=== PATIENT | female | born 1975 | race Caucasian/White ===

== ENCOUNTER → 2016-05-23 | Outpatient (CLI) | payer OTHER ==
[~2016-05-23] MED LIST: MULT-506 PO; SERT-234 PO
[2016-05-23 14:26] LABS: URINE APPEARANCE CLOUDY (CLEAR); URINE BILIRUBIN NEG (NEG); URINE EPITHELIAL CELL AUTO >30 /lpf (0-5); URINE NITRITE NEG (NEG); URINE PH 5.5 (4.5-7.5); URINE SPECIFIC GRAVITY 1.007 (1.000-1.030); UROBILINOGEN NEG (NEG)
[2016-05-23 14:36] LABS: MANUAL MICROSCOPIC REQUIRED? NO; REVIEW REQ? NO; URINE COLOR YELLOW
== END | disposition home or self-care (01) ==
LOC: C.LABSPEC 13:45
PROVIDERS: ATTEND Family Medicine
DX: M54.5 Low back pain (principal); R10.30 Lower abdominal pain, unspecified

== ENCOUNTER → 2016-05-23 | Outpatient (CLI) | payer OTHER | END | disposition home or self-care (01) | LOC: C.LAB1850 13:00 | PROVIDERS: ATTEND Family Medicine | DX: M54.5 Low back pain (principal); R10.30 Lower abdominal pain, unspecified ==

== ENCOUNTER → 2016-07-08 | Outpatient (CLI) | payer OTHER ==
--- NOTE | 2016-07-08 16:08 | DIAGNOSTIC IMAGING REPORT ---
ELBOW MIN 3 VIEWS ROUTINE CLINICAL HISTORY: Right elbow pain following recent injury. COMPARISON: Right forearm radiograph May 26, 2014. FINDINGS: Alignment of the right elbow is anatomic. A small bony excrescence projecting off the distal shaft of the right humerus is of no clinical significance. There is no acute fracture or joint effusion. A few tiny ossific densities just distal to the humerus measure up to 2 mm. IMPRESSION: 1. No acute fracture or joint effusion of the right elbow. 2. A few punctate ossific densities projecting over the joint space. These could reflect small loose bodies or osteophytes. Electronically signed by: Bryan Haskins M.D. 07/08/2016 4:07 PM Dictated Date/Time: 07/08/2016 4:04 PM
== END | disposition home or self-care (01) ==
LOC: C.RAD 15:28
PROVIDERS: ATTEND Internal Medicine
DX: M25.521 Pain in right elbow (principal); S59.901A Unspecified injury of right elbow, initial encounter; X58.XXXA Exposure to other specified factors, initial encounter

== ENCOUNTER → 2016-07-11 | Outpatient (CLI) | payer OTHER ==
--- NOTE | 2016-07-11 15:54 | DIAGNOSTIC IMAGING REPORT ---
ULTRASOUND LEFT VENOUS DOPP LOWER EXT UNILAT CLINICAL HISTORY: Left leg pain COMPARISON STUDY: No previous studies for comparison. FINDINGS: Real-time and color flow Doppler imaging were performed. Flow was seen within the femoral, popliteal and calf veins with no intraluminal thrombus demonstrated. The saphenous vein is patent. There is a complex left popliteal cyst measuring 34 x 15 x 19 mm. IMPRESSION: No evidence of left lower extremity DVT. Electronically signed by: Roland Wong M.D. 07/11/2016 3:52 PM Dictated Date/Time: 07/11/2016 3:52 PM
== END | disposition home or self-care (01) ==
LOC: C.ULTR 15:20
PROVIDERS: ATTEND Physician Assistant Medical
DX: M25.562 Pain in left knee (principal); M79.605 Pain in left leg

== ENCOUNTER → 2016-07-19 | Outpatient (CLI) | payer OTHER ==
--- NOTE | 2016-07-19 11:17 | DIAGNOSTIC IMAGING REPORT ---
RIGHT FOOT 3 VIEWS CLINICAL HISTORY: Right foot pain. FINDINGS: 3 views of the right foot are obtained No prior studies are available for comparison at the time of dictation. The skeletal structures are well mineralized. No fracture is seen. The joint spaces are well-maintained. There is a small plantar calcaneal enthesophyte. A small os naviculari is incidentally noted. The overlying soft tissues are within normal limits. IMPRESSION: Unremarkable radiographic assessment of the right foot. Electronically signed by: Woody Lanier M.D. 07/19/2016 11:15 AM Dictated Date/Time: 07/19/2016 11:13 AM
== END | disposition home or self-care (01) ==
LOC: C.RADBC 10:53
PROVIDERS: ATTEND Physician Assistant Medical
DX: M79.671 Pain in right foot (principal)

== ENCOUNTER → 2016-09-22 | Outpatient (CLI) | payer OTHER ==
--- NOTE | 2016-09-22 13:07 | DIAGNOSTIC IMAGING REPORT ---
RIGHT FOOT MIN 3 VIEWS ROUTINE CLINICAL HISTORY: Right foot pain. Trauma. COMPARISON: 07/19/2016 DISCUSSION: No fractures or dislocations are visualized. There is a tiny plantar calcaneal spur. IMPRESSION: No fractures or dislocations identified. Electronically signed by: Roland Wong M.D. 09/22/2016 1:06 PM Dictated Date/Time: 09/22/2016 1:04 PM
== END | disposition home or self-care (01) ==
LOC: C.RADBC 12:46
PROVIDERS: ATTEND Family Medicine
DX: M79.671 Pain in right foot (principal)

== ENCOUNTER 2016-09-23 00:46 | Emergency (ER) | payer OTHER ==
[~2016-09-23] VITALS: Ht 162.6 cm; Wt 90.7 kg
[2016-09-23 00:47] VITALS: TEMP 36.7; Ht 162.6 cm; Wt 90.7 kg
--- NOTE | 2016-09-23 01:18 | EMERGENCY ROOM VISIT NOTE ---
ED Visit Note First contact with patient: 01:12 CHIEF COMPLAINT: Foot pain HISTORY OF PRESENT ILLNESS: This 40-year-old female patient presents to the emergency department ambulatory complaining of pain in the right foot. The patient states that a few weeks ago, she dropped a bed onto her foot and has had pain since then. She states that a few days ago she twisted her foot while walking. She called her primary care provider earlier today and they were unable to make an appointment, but did order an x-ray which was performed today. She states she has an appointment scheduled with orthopedics in 2 weeks. She reports pain over the top of the foot which is worse with weightbearing. The patient rates the pain as sharp and 8/10. The patient has not taking any medication at home for relief of the pain. The patient is able to walk. No numbness or weakness. No ankle pain. There are no lacerations of the foot. The patient is able to move all of their toes and their ankle without pain. No previous fracture to this foot. REVIEW OF SYSTEMS: GENERAL: A 6 system review of systems was completed with positives and pertinent negatives in the HPI. ALLERGIES: Azithromycin, penicillins MEDICATIONS: Zoloft PMH: No significant past medical history. SOCIAL HISTORY: The patient lives locally with family. She is a smoker. PHYSICAL EXAM: Vital Signs: Reviewed Nurse's notes, vital signs stable. GENERAL : This is a 40-year-old female, in no acute distress, but appears in pain, well- developed, well-nourished. MUSCULOSKELETAL: There is no visual deformity of the right foot. There is no erythema or ecchymosis. There is no warmth. There is tenderness and swelling over the dorsal aspect of the right foot. There is no tenderness over the lateral or medial malleolus. No tenderness of the tib/fib. The range of motion of the ankle and toes are full. There is no tenderness over the plantar fascia. The skin is intact and there are no lacerations or puncture wounds. Dorsalis pedis pulse 2+. Capillary refill less than 2 seconds. RADIOGRAPHIC FINDINGS: RIGHT FOOT MIN 3 VIEWS ROUTINE (performed as outpatient 09/22/16) CLINICAL HISTORY: Right foot pain. Trauma. COMPARISON: 07/19/2016 DISCUSSION: No fractures or dislocations are visualized. There is a tiny plantar calcaneal spur. IMPRESSION: No fractures or dislocations identified. EMERGENCY DEPARTMENT COURSE: I examined the patient. Records were reviewed. The patient had an x-ray performed as an outpatient today. She was given the results of this x-ray. She is placed in a postoperative shoe. She has follow- up scheduled with orthopedics in 2 weeks. Conservative measures were discussed. She verbalized understanding and was discharged home in good condition. Medication reconciliation: I attest that I have personally reviewed the patient 's current medication list. Blood pressure screening: Patient was found to have an elevated blood pressure and was referred to their primary care provider for recheck and further treatment. DIAGNOSIS: Foot pain Current/Historical Medications Scheduled Sertraline (Zoloft), 150 MG PO DAILY Allergies Coded Allergies: Azithromycin (Verified Allergy, Unknown, 10/16/15) Penicillins (Verified Allergy, Unknown, HIVES, 10/16/15) Vital Signs Date Time Temp Pulse Resp B/P (MAP) Pulse Ox O2 Delivery O2 Flow Rate FiO2 09/23/16 01:36 82 18 148/100 98 09/23/16 00:47 36.7 82 18 164/101 98 Room Air Departure Information Impression Primary Impression: Contusion of foot Dispostion Home / Self-Care Condition GOOD Referrals No Doctor, Assigned (PCP) Patient Instructions My [facility] Additional Instructions You have been treated in the Emergency Department for a foot injury. For pain control, you can use the following pxko-hry-fbsaqhd medicines (if >12 yo): - Regular strength (325mg/tab) Tylenol (acetaminophen) 2 tabs every 4-6 hours as needed. Do not exceed 12 tablets in a 24 hour period. Avoid taking more than 4 grams (4000 mg) of Tylenol per day. This includes any other sources of acetaminophen you may take on a regular basis. - Regular strength (200 mg/tab) Advil (ibuprofen) 1-2 tabs every 4-6 hours as needed. Do not exceed a dose of 3200 mg per day. If this is a recent injury (<24 hrs), ice can be applied to the area of pain for the first 3 days to help decrease pain and inflammation. Wear the postoperative shoe until follow-up with orthopedics. Keep your follow-up as scheduled. Return to the Emergency Department if your current symptoms worsen despite treatment course outlined above, or if you develop any of the following symptoms : intractable pain despite aforementioned treatment course or new onset of numbness or tingling of the foot. Problem Qualifiers Primary Impression: Contusion of foot Encounter type: initial encounter Laterality: right Qualified Codes: S90.31XA - Contusion of right foot, initial encounter
[2016-09-23 01:36] VITALS: BP 148/100; PULSE 82; O2SAT 98
== END 2016-09-23 01:37 | disposition home or self-care (01) ==
LOC: C.EDB 00:47 → C.EDA 01:37
DX: S90.31XA Contusion of right foot, initial encounter (principal); W23.0XXA Caught, crushed, jammed, or pinched between moving objects, initial encounter; F17.200 Nicotine dependence, unspecified, uncomplicated

== ENCOUNTER 2016-10-22 18:37 | Emergency (ER) | payer OTHER ==
[~2016-10-22] VITALS: Ht 162.6 cm; Wt 89.2 kg
[~2016-10-22 18:37] MED LIST changes: -MULT-506 PO
[2016-10-22 18:41] VITALS: TEMP 36.9; Ht 162.6 cm; Wt 89.2 kg
[2016-10-22] MEDS ORDERED: XYLOCAINE 1%/SOD BICARB 20 ML VIAL INFIL ONE (19:00)
--- NOTE | 2016-10-22 19:05 | EMERGENCY ROOM VISIT NOTE ---
History Report prepared by [place]: Yoni Moran Under the Supervision of: Dr. Blaze Fisher M.D. First contact with patient: 18:52 Chief Complaint: LACERATION/CUT (SUT/DERMABOND) Stated Complaint: FINGER PAIN Nursing Triage Summary: Lac between right ring and pinky finger cut on glass History of Present Illness The patient is a 40 year old female who presents to the Emergency Room with complaints of a laceration located between her right ring and pinky finger that occurred 1 hour ago. She rates her pain an 8/10 in severity. At this time, the patient was washing a cup that she did not know was broken. She denies any other complaints. Her tetanus shot is up to date. She states that there is no ch chance she is . Source of History: patient Onset: 1 hour ago Position: hand (right) Symptom Intensity: 8/10 Quality: sharp Timing: constant Modifying Factors (Worsening): movement Note: She denies any other abnormal symptoms. Review of Systems See HPI for pertinent positives & negatives. A total of 10 systems reviewed and were otherwise negative. Past Medical & Surgical Old medical records were reviewed. Nurse's notes were reviewed and I agree with. Family History Patient reports no known family medical history. Social History Smoking Status: Current Some Day Smoker Alcohol Use: none Drug Use: none Marital Status: in relationship Housing Status: lives with family Occupation Status: unemployed Current/Historical Medications Scheduled Sertraline (Zoloft), 150 MG PO DAILY Allergies Coded Allergies: Azithromycin (Verified Allergy, Unknown, 10/16/15) Penicillins (Verified Allergy, Unknown, HIVES, 10/16/15) Physical Exam Vital Signs Date Time Temp Pulse Resp B/P (MAP) Pulse Ox O2 Delivery O2 Flow Rate FiO2 10/22/16 20:05 158/96 10/22/16 19:40 73 16 168/105 95 Room Air 10/22/16 18:41 36.9 86 18 168/100 97 Room Air Physical Exam General: Well developed well nourished non ill appearing young female in no acute distress, breathing comfortably on room air. Normal speech HEENT: Normal cephalic atraumatic. Pupils are equal round and reactive to light. Sclerae anicteric. Extraocular movements are intact. Oropharynx is pink with moist mucous membranes. No swelling of the mouth lips or tongue. Neck: Supple with a midline trachea. No meningeal signs or stiffness, no JVD or bruits. No Stridor. Chest: Clear to auscultation bilaterally. No wheezes or rhonchi. No increased work of breathing. Heart: regular rate and rhythm. Abdomen: Soft nontender, nondistended without rebound guarding or rigidity. Extremities: No cyanosis clubbing or edema. No calf tenderness or assymetry. Laceration on the right hand located in the web space between fingers 4 and 5. No active bleeding. No damage to any underlying structures. Spine/Back. Non tender to palpation. No CVA tenderness Skin: Good turgor without rashes. Neurologic exam: Cranial nerves two through 12 are intact. Motor and sensation are intact and symmetrical throughout. Medical Decision & Procedures Procedure Laceration Repair Location: Webspace between the 4th and 5th finger on the right hand Total length: 2 cm Complexity: Simple Verbal consent was obtained after the risks and benefits were explained, including but not limited to bleeding, scarring, infection, pain, and bone/joint /nerve damage. At this time, the risks of the procedure are less than the risks of NOT performing the procedure. A time out was taken and the correct patient and site identified. The skin was prepped with betadine. The target area was anesthetized with 0.5 ml of 1% lidocaine without epinephrine. Copious irrigation was performed using normal saline. The skin was re-prepped with betadine and a sterile field set. The wound was explored for foreign bodies and none found. Examination revealed no injury to deep structures such as tendons, bone, or significant blood vessels. Debridement was not performed. The wound edges were approximated using 5, 4-0 simple interrupted nylon sutures. Hemostasis and excellent approximation was achieved. Antibacterial ointment and a sterile dressing applied. Detailed wound care instructions and signs and symptoms of infection reviewed with the patient. No complications and the patient tolerated the procedure well. ED Course 1851: Past medical records reviewed. The patient was evaluated in room D9, and a complete history and physical examination were performed. 1899: Ordered Lidocaine HCl 20 ml INFIL 1904: At this time, I did a laceration repair procedure. Please see the procedure note for more information. 1947: Upon reevaluation, the patient is resting. I discussed the results and treatment plan with her. She verbalized agreement of the treatment plan. The patient was discharged home. Medical Decision Differentials include, but are not limited to; laceration, tendon injury, and foreign body. Medication Reconciliation: I attest that I have personally reviewed the patient' s current medication list. Blood Pressure Screening: Patient was found to have a slightly elevated blood pressure due to circumstances. I do not believe that the patient requires hypertension monitoring. This patient comes in after having a laceration from a broken glass. She denies there is any glass in the wound and I do not see any on exam. She is neurologically and neurovascularly intact. That wound was repaired as outlined above with 5 sutures bacitracin sterile dressing applied as well as a neutral finger splint. She is to return in 7-10 days for suture removal. Sooner if any problems with the wound such as redness, pus, fever, drainage, any problems concerns. She is up-to-date on her tetanus booster . She was happy with the plan and discharged to home. Impression Primary Impression: Hand laceration Scribe Attestation The scribe's documentation has been prepared under my direction and personally reviewed by me in its entirety. I confirm that the note above accurately reflects all work, treatment, procedures, and medical decision making performed by me. Departure Information Dispostion Home / Self-Care Referrals No Doctor, Assigned (PCP) Forms HOME CARE DOCUMENTATION FORM, IMPORTANT VISIT INFORMATION Patient Instructions My [facility] Additional Instructions Rest. Drink plenty of fluids. Wear neutral splint for comfort and protection Apply bacitracin and sterile dressing twice a day Return if: Redness or pus, fever or chills, numbness or weakness, any new problems or concerns Return in 7 days for suture removal, sooner if any problems
[2016-10-22 19:40] VITALS: PULSE 73; O2SAT 95
[2016-10-22 20:05] VITALS: BP 158/96
== END 2016-10-22 20:06 | disposition home or self-care (01) ==
LOC: C.EDB 18:38 → C.EDD 20:06
DX: S61.214A Laceration without foreign body of right ring finger without damage to nail, initial encounter (principal); W45.8XXA Other foreign body or object entering through skin, initial encounter; F17.200 Nicotine dependence, unspecified, uncomplicated; Z88.0 Allergy status to penicillin; Z88.1 Allergy status to other antibiotic agents

== ENCOUNTER → 2017-03-15 | Outpatient (CLI) | payer OTHER ==
--- NOTE | 2017-03-15 13:16 | DIAGNOSTIC IMAGING REPORT ---
R VENOUS DOPP LOWER EXT UNILAT CLINICAL HISTORY: RIGHT LEG PAIN AND SWELLING R/O DVT TECHNIQUE: Venous Doppler COMPARISON STUDY: None FINDINGS: Normal study IMPRESSION: Normal study The above report was generated using voice recognition software. It may contain grammatical, syntax or spelling errors. Electronically signed by: Frederic Vallejo M.D. 03/15/2017 1:14 PM Dictated Date/Time: 03/15/2017 1:13 PM
== END | disposition home or self-care (01) ==
LOC: C.ULTRBC 12:41
PROVIDERS: ATTEND Physician Assistant Medical
DX: M79.661 Pain in right lower leg (principal)

== ENCOUNTER → 2017-03-27 | Outpatient (CLI) | payer OTHER | END | disposition home or self-care (01) | LOC: C.RDSM 12:13 | PROVIDERS: ATTEND Physical Medicine & Rehabilitation Sports Medicine | DX: M25.571 Pain in right ankle and joints of right foot (principal) ==

== ENCOUNTER → 2017-05-15 | Outpatient (CLI) | payer OTHER ==
--- NOTE | 2017-05-15 16:43 | DIAGNOSTIC IMAGING REPORT ---
R SHOULDER MIN 2 VIEWS ROUTINE CLINICAL HISTORY: Right shoulder pain status post trauma COMPARISON: 10/26/2015 DISCUSSION: No fractures or dislocations are visualized. IMPRESSION: No fractures or dislocations identified Electronically signed by: Roland Wong M.D. 05/15/2017 4:42 PM Dictated Date/Time: 05/15/2017 4:42 PM
--- NOTE | 2017-05-15 16:44 | DIAGNOSTIC IMAGING REPORT ---
R ELBOW MIN 3 VIEWS ROUTINE CLINICAL HISTORY: Pain status post trauma COMPARISON: None. DISCUSSION: There is slight displacement of the anterior humeral fat pad. There is a corticated ossicle adjacent to the olecranon. No acute fractures or dislocations are visualized. There is a supracondylar process present. There is a small spur arising from the medial aspect of the coronoid process IMPRESSION: Suspected small effusion. No fractures or dislocations are visualized on conventional radiographic imaging Electronically signed by: Roland Wong M.D. 05/15/2017 4:43 PM Dictated Date/Time: 05/15/2017 4:42 PM
--- NOTE | 2017-05-15 16:45 | DIAGNOSTIC IMAGING REPORT ---
R WRIST MIN 3 VIEWS ROUTINE CLINICAL HISTORY: Right wrist pain status post trauma COMPARISON: None. DISCUSSION: No acute fractures or dislocations are visualized. There is mild ulnar minus variance IMPRESSION: No fractures or dislocations identified. Electronically signed by: Roland Wong M.D. 05/15/2017 4:44 PM Dictated Date/Time: 05/15/2017 4:43 PM
== END | disposition home or self-care (01) ==
LOC: C.RADBC 16:16
PROVIDERS: ATTEND Physician Assistant Medical
DX: M25.511 Pain in right shoulder (principal); M25.521 Pain in right elbow; M25.531 Pain in right wrist

== ENCOUNTER → 2017-11-24 | Outpatient (CLI) | payer OTHER ==
--- NOTE | 2017-11-24 11:47 | DIAGNOSTIC IMAGING REPORT ---
ABDOMEN 2VIEW W/PA CHEST RTN CLINICAL HISTORY: 42 years-old Female presenting with CONSTIPATION AND ABDOMINAL BLOATING. TECHNIQUE: PA view of the chest and supine and upright views of the abdomen were obtained. COMPARISON: None. FINDINGS: Cardiomediastinal silhouette normal. Lungs and pleural spaces clear. Moderate stool burden predominately in the right and transverse colon. Nonobstructive bowel gas pattern. No gross pneumoperitoneum. Allowing for bowel gas and stool, no calcifications to suggest nephrolithiasis. Few pelvic calcifications likely phleboliths. Transitional lumbosacral anatomy suggested with lumbarization of S1. IMPRESSION: 1. No acute cardiopulmonary disease. 2. Moderate stool burden in the right and transverse colon could suggest constipation. No bowel obstruction or free air. Electronically signed by: Jeremías Tinajero M.D. 11/24/2017 11:46 AM Dictated Date/Time: 11/24/2017 11:44 AM
[2017-11-24 12:54] LABS: HEMATOCRIT 40.2 % (37-47); HEMOGLOBIN 13.9 g/dL (12.0-16.0); MEAN CELL VOLUME 85.5 fL (80-100); MEAN CORPUSCULAR HEMOGLOBIN 29.6 pg (25-34); MEAN CORPUSCULAR HGB CONC 34.6 g/dl (32-36); MEAN PLATELET VOLUME 10.5 fL (7.4-10.4); PLATELET COUNT 322 K/uL (130-400); RED CELL DISTRIBUTION WIDTH CV 13.5 % (11.5-14.5); RED CELL DISTRIBUTION WIDTH SD 42.2 fL (36.4-46.3); WHITE BLOOD COUNT 10.51 K/uL (4.8-10.8)
[2017-11-24 13:07] LABS: ALBUMIN 3.8 gm/dl (3.4-5.0); ALKALINE PHOSPHATASE 84 U/L (45-117); ALT/SGPT 22 U/L (12-78); AST/SGOT 19 U/L (15-37); BLOOD UREA NITROGEN 8 mg/dl (7-18); CALCIUM 9.2 mg/dl (8.5-10.1); CARBON DIOXIDE 26 mmol/L (21-32); CREATININE 0.84 mg/dl (0.60-1.20); GLUCOSE 125 mg/dl (70-99); LIPASE 3011 U/L (73-393); POTASSIUM 3.7 mmol/L (3.5-5.1); SODIUM 134 mmol/L (136-145); TOTAL PROTEIN 8.3 gm/dl (6.4-8.2)
== END | disposition home or self-care (01) ==
LOC: C.RAD1850 11:18
PROVIDERS: ATTEND Internal Medicine
DX: R14.0 Abdominal distension (gaseous) (principal)

== ENCOUNTER → 2017-11-28 | Outpatient (CLI) | payer OTHER ==
--- NOTE | 2017-11-28 09:52 | DIAGNOSTIC IMAGING REPORT ---
BILIARY ULTRASOUND CLINICAL HISTORY: Abdominal pain and bloating COMPARISON STUDY: Abdominal bloating FINDINGS: No focal hepatic masses are visualized. There is no intrahepatic biliary ductal dilatation. The common bile duct measures 7 mm. The gallbladder appears sonographically normal. The pancreatic parenchyma appears thickened. No focal masses are visualized. There is no right-sided hydronephrosis. IMPRESSION: 1. Mild diffuse pancreatic thickening without evidence of focal mass 2. Ultrasonographically normal liver and gallbladder 3. 7 mm common bile duct Electronically signed by: Roland Wong M.D. 11/28/2017 9:51 AM Dictated Date/Time: 11/28/2017 9:48 AM
[2017-11-28 13:16] LABS: ALBUMIN 3.8 gm/dl (3.4-5.0); ALKALINE PHOSPHATASE 79 U/L (45-117); ALT/SGPT 23 U/L (12-78); AST/SGOT 16 U/L (15-37); BLOOD UREA NITROGEN 7 mg/dl (7-18); CALCIUM 9.9 mg/dl (8.5-10.1); CARBON DIOXIDE 25 mmol/L (21-32); CREATININE 0.87 mg/dl (0.60-1.20); GLUCOSE 124 mg/dl (70-99); LIPASE 2358 U/L (73-393); POTASSIUM 3.9 mmol/L (3.5-5.1); SODIUM 135 mmol/L (136-145)
== END | disposition home or self-care (01) ==
LOC: C.ULTRBC 09:00
PROVIDERS: ATTEND Internal Medicine
DX: R14.0 Abdominal distension (gaseous) (principal); R10.13 Epigastric pain